=== PATIENT | male | born 1970 | race Caucasian/White ===

== ENCOUNTER → 2016-05-05 | Outpatient (CLI) | payer BC, OTHER ==
[~2016-05-05] MED LIST: CITA10TA4 PO; CLON1TAB3 PO
--- NOTE | 2016-05-05 11:45 | RAD ---
Indication palpable abnormality upper left lateral thigh. Targeted ultrasound was performed to the area of interest in the upper outer left thigh. No definite soft tissue abnormality is seen. IMPRESSION: Normal targeted ultrasound of the left thigh
== END | disposition home or self-care (01) ==
LOC: US 07:13
PROVIDERS: ATTEND Nurse Practitioner Family
DX: M67.90 Unspecified disorder of synovium and tendon, unspecified site (principal)
CPT/HCPCS: 76881

== ENCOUNTER → 2016-08-27 | Day surgery (SDC) | payer BC ==
[~2016-08-27] MED LIST changes: +LIDOCAINE 1%/EPI 1:100,000 20 ML VIAL. INJ ONE; +LIDOCAINE 1%/EPI 1:100,000 20 ML VIAL. ONE; +SERT100T PO
[2016-08-27 07:59] VITALS: BP 106/71
--- NOTE | 2016-08-27 10:10 | DISCH ---
DISCHARGE INSTRUCTIONS Condition on Discharge Condition on Discharge: Stable Activity After Discharge Activity Instructions for Disc: Activity as tolerated Diet after Discharge Diet after Discharge: Regular Wound Incision Care Other wound/incision instructi: Nathalia shower in 24 hours Contacting the after DC Call your doctor for: If your condition worsens Follow-Up Follow up with: Dr Obrien in 2 weeks KASH OBRIEN MD August 27, 2016 10:10
--- NOTE | 2016-08-27 10:10 | PDOC ---
BRIEF OPERATIVE NOTE Date: August 27, 2016 Pre-Op Diagnosis Left thigh mass Post-Op Diagnosis Same Procedure Performed Excision of left thigh mass Surgeon Beck Anesthesia Type: Local Blood Loss 5ml Specimens Obtained thigh mass Findings as above Complications None KASH OBRIEN MD August 27, 2016 10:10
--- NOTE | 2016-08-27 15:58 | OP ---
DATE OF SURGERY: 08/27/2016 PREOPERATIVE DIAGNOSIS: Left thigh mass. POSTOPERATIVE DIAGNOSIS: Left thigh mass. PROCEDURE: Excision of left thigh mass. SURGEON: Dimitri Obrien M.D. INDICATIONS: The patient is a 46-year-old gentleman who has complained of an increasingly enlarging subcutaneous mass on his left thigh. Procedure of excision was explained to the patient in detail. Risks and benefits were also discussed including bleeding and infection. The patient seemed to understand and gave verbal and written consent to have the procedure performed. DESCRIPTION OF PROCEDURE: The patient was placed supine on table. His thigh was prepped and draped in usual sterile fashion using ChloraPrep. An area around this mass was injected with 1% lidocaine with epinephrine. An incision was made with 15-blade scalpel, was carried down through subcutaneous tissues down to the mass which appeared to be a lipoma which was fully excised approximately 3 cm in diameter. The wound was then closed in single layer of 4-0 subcuticular Monocryl. Mastisol, Steri-Strips, and Band-Aids were applied as dressings. The patient tolerated the procedure well, was discharged to home in stable condition. DIMITRI OBRIEN MD DR: OLIVERIO/shelbie JOB#: [id number] / [id number] COMFORT Luna MD
--- NOTE | 2016-08-30 16:04 | PATHOLOGY ---
PATHOLOGY REPORT * * * * * * * * FINAL DIAGNOSIS: Soft tissue, "left thigh mass", excision: - Lipoma. (SKM:trista; d/t: 08/30/2016) REPORT ELECTRONICALLY SIGNED BY: Savita Kwong M.D. DATE/TIME: 08/30/2016 16:03 * * * * * * * * GROSS PATHOLOGY: Received in formalin labeled "Garfield Bales, left thigh mass," are multiple pieces of lobulated fibroadipose tissue measuring 3.8 x 2.5 x 1.4 cm in aggregate dimensions. Sectioning reveals homogeneous, bright yellow cut surfaces. Weld Fitter sections are submitted in cassette A1. ([facility]; 08/29/2016) INITIAL CPT CODE(S): A; 79477 Professional services performed [place] [facility] [place] [address] Technical services performed by [facility] at [address] [place] [address]. SPECIMEN(S) RECEIVED: A.Left thigh mass CLINICAL HISTORY: Left thigh mass PATIENT: GARFIELD BALES /AGE: 307/03/1970 (Age: 46) PATIENT #: [id number] ALT CASE #: SPECIMEN COLLECTION DATE: 08/27/2016 SPECIMEN RECEIVED DATE: 08/27/2016 [facility] - [address] [place] [address] - PHONE: [phone] * * * END OF REPORT * * *
== END | disposition home or self-care (01) ==
LOC: SURG 07:05
PROVIDERS: ATTEND Surgery
DX: D17.24 Benign lipomatous neoplasm of skin and subcutaneous tissue of left leg (principal); F41.9 Anxiety disorder, unspecified; F32.9 Major depressive disorder, single episode, unspecified
CPT/HCPCS: 11403; 88304; J3490

== ENCOUNTER 2017-03-03 07:55 | Day surgery (SDC) | payer BC ==
[~2017-03-03] VITALS: Ht 177.8 cm; Wt 95.7 kg
[~2017-03-03 07:55] MED LIST changes: +HYDROmorphone 2 MG/ML VIAL IV PRN; +IV RINGERS,LACTATED 1000ML 1,000 ML IV SCH; +LIDOCAINE 1% PF 2 ML VIAL. ID PRN; -LIDOCAINE 1%/EPI 1:100,000 20 ML VIAL. INJ ONE; -LIDOCAINE 1%/EPI 1:100,000 20 ML VIAL. ONE; +ONDANSETRON PF 4 MG/2 ML VIAL. IV PRN; +PROCHLORPERAZINE 10 MG/2 ML VIAL. IV PRN; +fentaNYL PF VIAL 100 MCG/2 ML VIAL IV PRN
[2017-03-03] MEDS ORDERED: OMEP40CA5 PO (08:15)
[2017-03-03] MEDS ORDERED: LIDOCAINE 1% PF 5 ML VIAL. ONE (08:19)
[2017-03-03] MEDS ORDERED: ONDANSETRON PF 4 MG/2 ML VIAL. ONE (08:19)
[2017-03-03] MEDS ORDERED: PROPOFOL 20 ML IV ONE (08:19)
[2017-03-03] MEDS ORDERED: SUCCINYLCHOLINE 200 MG/10 ML VIAL. ONE (08:20)
[2017-03-03] MEDS ORDERED: fentaNYL PF VIAL 100 MCG/2 ML VIAL ONE (08:20)
[2017-03-03] MEDS ORDERED: ROCURONIUM 50 MG/5 ML VIAL. ONE (08:20)
[2017-03-03] MEDS ORDERED: MIDAZOLAM HCL/PF 2 MG/2 ML VIAL. ONE (08:28)
[2017-03-03] MEDS ORDERED: BUPIVACAINE-EPI 0.25%-1:200000 50 ML VIAL. ONE (08:40)
[2017-03-03] MEDS ORDERED: BUPIVACAINE-EPI 0.25%-1:200000 MPF 30 ML VIAL. INJ ONE (09:37)
--- NOTE | 2017-03-03 10:33 | PDOC4 ---
Operative Note Operative Note Date: 03/03/2017 Preoperative diagnosis: Pilonidal Cyst Postoperative diagnosis: Same Procedure: Pilonidal cystectomy Surgeon: Beck Specimen: Pilonidal cyst Dictation: 46-year-old male with recurrent pilonidal cyst infections. Procedure pilonidal cystectomy was explained to the patient detail was benefits were also discussed including bleeding infection alternatives to this procedure also discussed the patient seemed understanding gave both verbal and written consent had procedure performed. Patient was taken to the operating room room intubated on his bed he was then positioned in prone positioning. Area on his buttocks was prepped and draped usual sterile fashion using Betadine scrub and solution. Area around the pilonidal cyst was injected quarter percent Marcaine with epinephrine incision was made with 15 blade scalpel elliptically around this area carried down to the coccyx fascia using electrocautery right hemostasis. Wound was then closed in 2 layers deep layer of single interrupted 0 Vicryl suture and the skin was reapproximated with 2-0 nylon horizontal mattress sutures. Wound was dressed with 4 x 4's and Medipore tape patient was then repositioned in the supine position waken expanded in the operating room taken recovery in stable condition all sponge instrument and needle counts listed as correct estimate blood loss 10 mL. KASH OBRIEN MD Mar 03, 2017 10:33
--- NOTE | 2017-03-03 10:34 | DISCH ---
DISCHARGE INSTRUCTIONS Condition on Discharge Condition on Discharge: Stable Activity After Discharge Activity Instructions for Disc: Avoid exertion Diet after Discharge Diet after Discharge: Regular Wound Incision Care Other wound/incision instructi: May shower in 24 hours Contacting the after DC Call your doctor for: If your condition worsens Follow-Up Follow up with: Dr Obrien in 2 weeks KASH OBRIEN MD Mar 03, 2017 10:34
[2017-03-03] MEDS ORDERED: oxyCODONE/APAP 5/325 1 TAB TABLET PO PRN (10:45)
[2017-03-03] MEDS ORDERED: OXYC-323 PO (10:45)
[2017-03-03 11:05] VITALS: BP 120/77
--- NOTE | 2017-03-07 09:48 | PATHOLOGY ---
PATHOLOGY REPORT * * * * * * * * FINAL DIAGNOSIS: Skin and subcutaneous tissue, pilonidal cystectomy: - Pilonidal sinus showing acute inflammation with underlying scarring and chronic inflammation. (JPM:db; 03/04/2017) REPORT ELECTRONICALLY SIGNED BY: Tyshwan Guadarrama M.D. DATE/TIME: 03/07/2017 08:17 * * * * * * * * GROSS PATHOLOGY: Received in formalin labeled "Lexii Bales, pilonidal cyst" is a 7.3 x 3.8 x 3.3 cm portion of paris-yellow lobulated fibroadipose tissue, which has an ellipse of paris-white skin on one aspect measuring 7.1 x 1.7 x 0.3 cm. The skin has a linear well-healed scar measuring 5.2 x 0.2 cm. The skin also has a paris-white raised nodule measuring 0.9 x 0.6 x 0.2 cm. Upon sectioning, the nodule has a paris-white fibrotic cut surface. There is paris-white fibrotic tissue deep to the scar. A tax compliance representative section of the specimen showing the scar and the nodule is submitted in cassette A1. ([facility]; 03/03/2017) INITIAL CPT CODE(S): A; 42775 Professional services performed by [facility] [place] [address] Technical services performed by [facility] at [address] [place] [address] [address], [place] [address]. SPECIMEN(S) RECEIVED: A.Pilonidal cyst CLINICAL HISTORY: Pilonidal cyst PATIENT: LEXII BALES /AGE: 307/03/1970 (Age: 46) PATIENT #: [id number] ALT CASE #: SPECIMEN COLLECTION DATE: 03/03/2017 SPECIMEN RECEIVED DATE: 03/03/2017 [facility] - [address] [place] [address] - PHONE: [phone] * * * END OF REPORT * * *
== END 2017-03-03 11:36 | disposition home or self-care (01) ==
LOC: SURG 07:55
PROVIDERS: ATTEND Surgery
DX: L05.91 Pilonidal cyst without abscess (principal); F41.9 Anxiety disorder, unspecified; F32.9 Major depressive disorder, single episode, unspecified; K21.9 Gastro-esophageal reflux disease without esophagitis; Z93.2 Ileostomy status; Z98.890 Other specified postprocedural states
CPT/HCPCS: 11771; J0330; J0690; J2250; J2405; J2704; J3010; 88304; A4461

== ENCOUNTER 2020-09-27 13:35 | Emergency (ER) | payer BC ==
[~2020-09-27] VITALS: Ht 177.8 cm; Wt 100.0 kg
[~2020-09-27 13:35] MED LIST changes: -CLON1TAB3 PO; +CLONAZEPAM1 MG PO; -HYDROmorphone 2 MG/ML VIAL IV PRN; -IV RINGERS,LACTATED 1000ML 1,000 ML IV SCH; -LIDOCAINE 1% PF 2 ML VIAL. ID PRN; +OMEP40CA7 PO; -ONDANSETRON PF 4 MG/2 ML VIAL. IV PRN; +OXYC1TAB15 PO; -PROCHLORPERAZINE 10 MG/2 ML VIAL. IV PRN; -fentaNYL PF VIAL 100 MCG/2 ML VIAL IV PRN
--- NOTE | 2020-09-27 14:58 | ED.ADGEN ---
Past Medical History Past Medical History: Other Additional Past Medical Histor: ULCERATIVE COLITIS Past Surgical History: Other Additional Past Surgical Histo: OSTOMY, RIGHT RCL Smoking Status: Current Some Day Smoker Alcohol Use: Heavy Additional Information: 2-3 TIMES PER WEEK General Adult EDM: Chief Complaint: ABDOMINAL PAIN HPI: HPI: Patient is a 50-year-old male who presents to the emergency room with a history of ileostomy due to ulcerative colitis complaining of abdominal distention, severe abdominal pain, decreased ileostomy output. Patient is concerned that he may have an obstruction. He states he has felt similar to this in the past. He states that typically due to a blockage. He states that he ate a burrito earlier today and thinks that this is what caused this pain and complications. Review of Systems: Review of Systems: Complete ROS is negative unless otherwise documented in HPI Current Medications: Current Medications Medications (Trade) Dose Ordered Sig/Jackelin Start Time Stop Time Status Last Admin Dose Admin Fentanyl Citrate (Fentanyl 2ml Vial) 50 mcg 1X ONCE 09/27/20 16:30 09/27/20 16:31 DC 09/27/20 16:55 50 MCG Info (CONTRAST GIVEN -- Rx MONITORING) 1 each PRN DAILY PRN 09/27/20 16:45 09/27/20 19:00 DC Iohexol (Omnipaque 240 Mg/ml) 30 ml 1X ONCE 09/27/20 16:45 09/27/20 16:46 DC 09/27/20 17:09 30 ML Ondansetron HCl (Zofran) 4 mg 1X ONCE 09/27/20 15:00 09/27/20 15:01 DC 09/27/20 15:21 4 MG Sodium Chloride 1,000 ml @ 1,000 mls/hr 1X ONCE 09/27/20 15:00 09/27/20 15:59 DC 09/27/20 15:21 1,000 MLS/HR Allergies: Allergies: Allergies Coded Allergies Type Severity Reaction Last Updated Verified morphine Allergy Intermediate 03/03/17 Yes ropinirole Adverse Reaction Intermediate LIGHTHEADEDNESS 03/03/17 Yes Physical Exam: PE: Constitutional: Well developed, well nourished, no acute distress, non-toxic appearance. [] HENT: Normocephalic, atraumatic, bilateral external ears normal, oropharynx moist, no oral exudates, nose normal. [] Eyes: PERRLA, EOMI, conjunctiva normal, no discharge. [] Neck: Normal range of motion, no tenderness, supple, no stridor. [] Cardiovascular:Heart rate regular rhythm, no murmur [] Lungs & Thorax: Bilateral breath sounds clear to auscultation [] Abdomen: Bowel sounds normal, soft, no tenderness, no masses, no pulsatile masses. [] Skin: Warm, dry, no erythema, no rash. [] Back: No tenderness, no CVA tenderness. [] Extremities: No tenderness, no cyanosis, no clubbing, ROM intact, no edema. [] Neurologic: Alert and oriented X 3, normal motor function, normal sensory function, no focal deficits noted. [] Psychologic: Affect normal, judgement normal, mood normal. [] Current Patient Data: Labs: Laboratory Tests Test 09/27/20 14:40 09/27/20 14:50 Urine Collection Type Unknown Urine Color Onelia Urine Clarity Clear Urine pH 5.5 (<5.0-8.0) Urine Specific Jones >=1.030 (1.000-1.030) Urine Protein 30 mg/dL (NEG-TRACE) Urine Glucose (UA) Negative mg/dL (NEG) Urine Ketones (Stick) Negative mg/dL (NEG) Urine Blood Negative (NEG) Urine Nitrite Negative (NEG) Urine Bilirubin Small (NEG) Urine Urobilinogen Dipstick 0.2 mg/dL (0.2 mg/dL) Urine Leukocyte Esterase Negative (NEG) Urine RBC 0 /HPF (0-2) Urine WBC 0 /HPF (0-4) Urine Squamous Epithelial Cells Few /LPF Urine Amorphous Sediment Present /HPF Urine Bacteria 0 /HPF (0-FEW) Urine Mucus Mod /LPF White Blood Count 16.8 x10^3/uL (4.0-11.0) H Red Blood Count 5.29 x10^6/uL (4.30-5.70) Hemoglobin 17.0 g/dL (13.0-17.5) Hematocrit 48.8 % (39.0-53.0) Mean Corpuscular Volume 92 fL (79-100) Mean Corpuscular Hemoglobin 32 pg (25-35) Mean Corpuscular Hemoglobin Concent 35 g/dL (31-37) Red Cell Distribution Width 14.4 % (11.5-14.5) Platelet Count 298 x10^3/uL (140-400) Neutrophils (%) (Auto) 86 % (31-73) H Lymphocytes (%) (Auto) 6 % (24-48) L Monocytes (%) (Auto) 6 % (0-9) Eosinophils (%) (Auto) 1 % (0-3) Basophils (%) (Auto) 0 % (0-3) Neutrophils # (Auto) 14.5 x10^3/uL (1.8-7.7) H Lymphocytes # (Auto) 1.0 x10^3/uL (1.0-4.8) Monocytes # (Auto) 1.0 x10^3/uL (0.0-1.1) Eosinophils # (Auto) 0.2 x10^3/uL (0.0-0.7) Basophils # (Auto) 0.1 x10^3/uL (0.0-0.2) Segmented Neutrophils % 73 % (35-66) H Band Neutrophils % 15 % (0-9) H Lymphocytes % 6 % (24-48) L Monocytes % 4 % (0-10) Eosinophils % 2 % (0-5) Platelet Estimate Adequate (ADEQUATE) Sodium Level 142 mmol/L (136-145) Potassium Level 3.8 mmol/L (3.5-5.1) Chloride Level 103 mmol/L (98-107) Carbon Dioxide Level 27 mmol/L (21-32) Anion Gap 12 (6-14) Blood Urea Nitrogen 18 mg/dL (8-26) Creatinine 1.8 mg/dL (0.7-1.3) H Estimated GFR (Cockcroft-Gault) 40.1 BUN/Creatinine Ratio 10 (6-20) Glucose Level 121 mg/dL (70-99) H Calcium Level 9.0 mg/dL (8.5-10.1) Total Bilirubin 0.4 mg/dL (0.2-1.0) Aspartate Amino Transferase (AST) 31 U/L (15-37) Alanine Aminotransferase (ALT) 82 U/L (16-63) H Alkaline Phosphatase 144 U/L (46-116) H Total Protein 8.2 g/dL (6.4-8.2) Albumin 4.3 g/dL (3.4-5.0) Albumin/Globulin Ratio 1.1 (1.0-1.7) Lipase 243 U/L (73-393) Laboratory Tests 09/27/20 14:50 Laboratory Tests 09/27/20 14:50 Vital Signs: Vital Signs Date Time Temp Pulse Resp B/P (MAP) Pulse Ox O2 Delivery O2 Flow Rate FiO2 09/27/20 18:05 78 18 139/87 (104) 95 Room Air 09/27/20 13:42 98.0 98.0 EKG: EKG: [] Heart Score: C/O Chest Pain: N/A Risk Factors: Risk Factors: DM, Current or recent (<one month) smoker, HTN, HLP, family history of CAD, obesity. Risk Scores: Score 0 - 3: 2.5% MACE over next 6 weeks - Discharge Home Score 4 - 6: 20.3% MACE over next 6 weeks - Admit for Clinical Observation Score 7 - 10: 72.7% MACE over next 6 weeks - Early Invasive Strategies Radiology/Procedures: Radiology/Procedures: [] Course & Med Decision Making: Course & Med Decision Making Pertinent Labs and Imaging studies reviewed. (See chart for details) Patient is a 50-year-old male past medical history of ileostomy due to ulcerative colitis who presents to the emergency room complaining of abdominal distention, vomiting, abdominal pain. Patient symptoms are concerning for an acute obstruction. CT and abdominal labs were done. Work-up is unremarkable. Patient is feeling significantly better. Patient's test results and vitals while in the ED were fully reviewed and discussed with the patient. Patient is stable and at this time does not need admission to the hospital. We have discussed strict return precautions and the importance of following up with their Primary Care Physician. Patient stated understanding and was given an opportunity to ask any questions. Patient is in agreement with plan. Dragon Disclaimer: Dragon Disclaimer: This electronic medical record was generated, in whole or in part, using a voice recognition dictation system. Departure Departure Impression: Primary Impression: Vomiting Disposition: HOME / SELF CARE / HOMELESS Condition: STABLE Referrals: COMFORT MA MD (PCP) Patient Instructions: Small Bowel Obstruction Scripts Hyoscyamine Sulfate (LEVSIN-SL) 0.125 Mg Tab.subl 1 TAB SL PRN Q4HRS PRN for pain for 5 Days, #60 TAB 0 Refills Prov: CONNER SHAH MD 09/27/20 CONNER SHAH MD Sep 27, 2020 14:58
[2020-09-27] MEDS ORDERED: IV NORMAL SALINE 1000ML BAG 1,000 ML IV ONE (15:00)
[2020-09-27] MEDS ORDERED: ONDANSETRON PF 4 MG/2 ML VIAL. IVP ONE (15:00)
[2020-09-27] MEDS ORDERED: fentaNYL PF VIAL 100 MCG/2 ML VIAL IVP ONE ×2 (15:00→16:30)
[2020-09-27 15:11] LABS: BILIRUBIN,URINE SMALL (NEG); CLARITY,URINE CLEAR; COLOR,URINE AMBER; NITRITE,URINE NEGATIVE (NEG); PH,URINE 5.5 (<5.0-8.0); PROTEIN,URINE 30 mg/dL (NEG-TRACE); UROBILINOGEN,URINE 0.2 mg/dL (0.2 mg/dL)
[2020-09-27 15:11] LABS: BASO # 0.1 x10^3/uL (0.0-0.2); BASO % 0 % (0-3); EOS # 0.2 x10^3/uL (0.0-0.7); EOS % 1 % (0-3); HEMATOCRIT 48.8 % (39.0-53.0); LYMPH % 6 % (24-48); MEAN CORPUSCULAR HEMOGLOBIN 32 pg (25-35); MEAN CORPUSCULAR HGB CONC 35 g/dL (31-37); MEAN CORPUSCULAR VOLUME 92 fL (79-100); MONO % 6 % (0-9); NEUT # 14.5 x10^3/uL (1.8-7.7); NEUT % 86 % (31-73); PLATELET COUNT 298 x10^3/uL (140-400); RED BLOOD COUNT 5.29 x10^6/uL (4.30-5.70); RED CELL DISTRIBUTION WIDTH 14.4 % (11.5-14.5); WHITE BLOOD COUNT 16.8 x10^3/uL (4.0-11.0)
[2020-09-27 15:14] LABS: CREATININE 1.8 mg/dL (0.7-1.3); GFR 40.1; POTASSIUM 3.8 mmol/L (3.5-5.1)
[2020-09-27 15:20] LABS: ALBUMIN 4.3 g/dL (3.4-5.0); ALBUMIN/GLOBULIN RATIO 1.1 (1.0-1.7); TOTAL BILIRUBIN 0.4 mg/dL (0.2-1.0); TOTAL PROTEIN 8.2 g/dL (6.4-8.2)
[2020-09-27 15:43] LABS: AMORPHOUS SEDIMENT,UR PRESENT /HPF; BACTERIA,URINE 0 /HPF (0-FEW); RBC,URINE 0 /HPF (0-2); WBC,URINE 0 /HPF (0-4)
[2020-09-27 15:57] LABS: % BANDS 15 % (0-9); % EOS 2 % (0-5); % LYMPHS 6 % (24-48); % MONOS 4 % (0-10); % SEGS 73 % (35-66)
[2020-09-27 15:58] LABS: PLT ESTIMATE ADEQUATE (ADEQUATE)
[2020-09-27] MEDS ORDERED: CONTRAST GIVEN. MC PRN (16:45)
[2020-09-27] MEDS ORDERED: IOHEXOL 240 MG/ML 50ML VIAL. PO ONE (16:45)
--- NOTE | 2020-09-27 16:59 | RAD ---
CT abdomen and pelvis with oral contrast only PQRS statement: CT scans at this facility use dose reduction including either automated exposure cont rol, iterative reconstructions, and /or weight based radiation dosing via mA and kV modification when appropriate to reduce radiation dose to as low as reasonably achievable. Contrast: 30 mL Omnipaque 240 oral iodine based contrast. No IV contrast. HISTORY: Abdominal pain. History of ostomy. COMPARISON: CT abdomen and pelvis December 10, 2014. Abdomen findings: Calcified granulomas left lung base. Mild contrast density lower esophagus perhaps due to gastric esophageal reflux. Disc bulges lower lumbar spine. Subcentimeter accessory spleen mckayla cent of the tail the pancreas. Liver, gallbladder, spleen, pancreas, adrenal glands and kidneys are u nremarkable. No urinary calculi or hydronephrosis evident. There is a total colectomy with right lowe r quadrant ileostomy. No abdominal fluid. No obstruction or inflammatory change of the GI tract evide nt. Pelvis findings: Total colectomy, there are low-lying contrast-filled small bowel loops within the pe lvis. There is some intramural fat deposition of segments of the distal small bowel however there is no active inflammatory change evident. Bladder, prostate and bones are unremarkable. IMPRESSION: No acute process. Total colectomy with right lower quadrant ileostomy. No bowel obstructi on or acute inflammatory change evident. Electronically signed by: Jameel Nino MD (09/27/2020 4:57 PM) [id number]
[2020-09-27] MEDS ORDERED: HYOS0.1265 SL (17:32)
[2020-09-27 18:05] VITALS: BP 139/87
== END 2020-09-27 18:21 | disposition home or self-care (01) ==
LOC: ER 13:35
DX: R11.10 Vomiting, unspecified (principal); R10.9 Unspecified abdominal pain; R14.0 Abdominal distension (gaseous); F17.200 Nicotine dependence, unspecified, uncomplicated; Z88.5 Allergy status to narcotic agent; Z88.8 Allergy status to other drugs, medicaments and biological substances
CPT/HCPCS: 36415; 74176; 80053; 81001; 83690; 85007; 85025; 96361; 96374; 96375; 96376; 99285; J2405; J3010; J7030; Q9966